=== PATIENT | female | born 1930 | race Caucasian/White ===

== ENCOUNTER 2017-09-21 19:19 | Emergency (ER) | payer MEDICARE, BC ==
[2017-09-21 19:51] VITALS: BP 164/66
--- NOTE | 2017-09-21 20:41 | EDM.PDOC ---
ED HPI GENERAL MEDICAL PROBLEM - General Chief Complaint: Abdominal Pain Stated Complaint: HEARNIA Time Seen by Provider: 09/21/17 19:21 Source of Information: Reports: Patient, Family (Son, Noah) History Limitations: Reports: No Limitations - History of Present Illness INITIAL COMMENTS - FREE TEXT/NARRATIVE: Abdominal pain this is a 87-year-old female presents emergency room with her son Noah, reports has a known hernia on the right lower abdomen, today while playing bridge she noticed increasing pain and tenderness to her right lower quadrant. This did not go away and she became concerned with a possible strangulation of the hernia. She is here now to rule this out. Denies any nausea, vomiting, diarrhea. Last meal of cheesecake and coffee was at 12:30pm. Onset: Gradual Onset Date: 09/21/17 Onset Time: 12:30 Duration: Hour(s): Location: Reports: Abdomen (Right lower quadrant) Quality: Reports: Ache, Pressure Severity: Mild Improves with: Reports: None Worsens with: Reports: None Associated Symptoms: Reports: No Other Symptoms right abdominal pain Pain Score (Numeric/FACES): 2 - Related Data Allergies Allergy/AdvReac Type Severity Reaction Status Date / Time levofloxacin [From Levaquin] Allergy Cannot Verified 09/21/17 20:49 Remember nitrofurantoin Allergy Cannot Verified 09/21/17 20:49 [From Macrobid] Remember nitrofurantoin Allergy Cannot Verified 09/21/17 20:49 macrocrystalline Remember [From Macrobid] Home Meds: Home Meds Calcium Polycarbophil [Fibercon] 625 mg PO ASDIRECTED 03/27/13 [History] Calcium* 1 tab PO DAILY 03/27/13 [History] Cranberry* 1 tab PO BID 03/27/13 [History] Omeprazole 20 mg PO DAILY 03/27/13 [History] Desonide [Desonide 0.05%] 1 applic TOP ASDIRECTED PRN 01/05/14 [History] Phenazopyridine [Pyridium] 200 mg PO TID PRN 01/05/14 [History] Ranitidine HCl [Ranitidine] 150 mg PO DAILY PRN 01/05/14 [History] Vit A & D3 In Cod Liver Oil [Cod Liver Oil Softgel] 1 tab PO DAILY 08/05/15 [ History] Fluticasone/Vilanterol [Breo Ellipta 100-25 MCG Inhalation Kit] 1 each IH DAILY 11/11/15 [History] Cephalexin [Take Home: Cephalexin 250 MG, 4 Cap Pack] 250 mg PO DAILY 04/25/16 [ History] Past Medical History HEENT History: Reports: Cataract, Hard of Hearing, Impaired Vision Respiratory History: Reports: Asthma, COPD Gastrointestinal History: Reports: Cholelithiasis, Diverticulosis, GERD, Other ( See Below) Other Gastrointestinal History: chrons Genitourinary History: Reports: UTI, Recurrent [employer] History: Reports: Musculoskeletal History: Reports: Fracture Other Musculoskeletal History: left hip. right elbow. compresion fracture. spinal stenosis Neurological History: Reports: Concussion, Neuropathy, Peripheral Dermatologic History: Reports: Other (See Below) Other Dermatologic History: Sun spots - Infectious Disease History Infectious Disease History: Reports: Chicken Pox, Measles, Mumps - Past Surgical History HEENT Surgical History: Reports: Cataract Surgery GI Surgical History: Reports: Cholecystectomy, Colonoscopy Social & Family History - Tobacco Use Smoking Status *Q: Former Smoker Used Tobacco, but Quit: Yes Month/Year Tobacco Last Used: 1981 Second Hand Smoke Exposure: No - Caffeine Use Caffeine Use: Reports: Coffee, Tea - Alcohol Use Days Per Week of Alcohol Use: 0 - Recreational Drug Use Recreational Drug Use: No ED ROS GENERAL - Review of Systems Review Of Systems: See Below Constitutional: Reports: No Symptoms HEENT: Reports: No Symptoms Respiratory: Reports: No Symptoms Cardiovascular: Reports: No Symptoms, Edema (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 Fracture 07/15/17) Skin: Reports: No Symptoms Neurological: Reports: Difficulty Walking (pre-existing deficit to neuropathy) Psychiatric: Reports: No Symptoms Hematologic/Lymphatic: Reports: No Symptoms Immunologic: Reports: No Symptoms ED EXAM, GENERAL - Physical Exam Exam: See Below Exam Limited By: No Limitations General Appearance: Alert, WD/WN, Mild Distress Eye Exam: Bilateral Eye: EOMI Ears: Normal External Exam Nose: Normal Inspection Throat/Mouth: Normal Inspection, Normal Lips Head: Atraumatic, Normocephalic Neck: Normal Inspection, Supple, Non-Tender, Full Range of Motion Respiratory/Chest: No Respiratory Distress, Lungs Clear, Normal Breath Sounds, No Accessory Muscle Use Cardiovascular: No JVD, Irregularly Irregular, Other (Irregular heartbeat with heart murmur noted.) Peripheral Pulses: 2+: Radial (R) GI/Abdominal: Normal Bowel Sounds, Soft, Distended (Fairly large abdominal mass/ bulge noted to the right lower quadrant, palpable mild tenderness noted) (Female) Exam: Deferred Rectal (Female) Exam: Deferred Back Exam: Muscle Spasm (Chronic) Extremities: Other (left arm a short cast. Fingers normal capillary refill less than 3 seconds no edema or redness is noted.) Neurological: Alert, Oriented, Normal Cognition, Normal Gait Psychiatric: Normal Affect, Normal Mood Skin Exam: Warm, Dry, Intact, Normal Color, No Rash Lymphatic: No Adenopathy Course - Vital Signs Last Recorded V/S: Last Vital Signs Temp 36.1 C 09/21/17 20:19 Pulse 66 09/21/17 20:19 Resp 17 09/21/17 20:19 BP 164/66 H 09/21/17 20:19 Pulse Ox 98 09/21/17 20:19 - Orders/Labs/Meds Orders: Active Orders 24 hr Category Date Time Status Abdomen Pelvis wo Cont [CT] Stat Exams 09/21/17 20:32 Taken Meds: Medications Discontinued Medications Generic Name Dose Route Start Last Admin Trade Name Michaelle PRN Reason Stop Dose Admin Magnesium Citrate 296 ml 09/21/17 22:17 Citrate Of Magnesia PO 09/21/17 22:18 ONETIME ONE - Re-Assessments/Exams Free Text/Narrative Re-Assessment/Exam: 09/21/17 20:45 discussed with patient and her son, will send for CT scan of abdomen pelvis without contrast to rule out any complications of her right-sided abdominal hernia. Mrs. Crowell and son agree with plan of care. 09/21/17 22:[address] of abdomen-pelvis. reviewed and given report to Mrs. Crowell and her Son has constipation, will send home with Mag.Sobia advised to follow up with Primary Care. Departure - Departure Time of Disposition: 22:26 Disposition: Home, Self-Care 01 Condition: Good Clinical Impression: Constipation Qualifiers: Constipation type: unspecified constipation type Qualified Code(s): K59.00 - Constipation, unspecified - Discharge Information Instructions: Constipation, Adult Referrals: Nico Young NP [Primary Care Provider] - Forms: ED Department Discharge Care Plan Goals: Constipation -non acute CT scan of abdomen-pelvis, patient given copy -start Magnesium Citrate tonight, drink half of the bottle now, repeat in 4 hours if no results. -avoid constipating foods such as dairy and cheese -continue routine medications as prescribed by her Medical Provider follow up with Primary Care Provider for recheck next week return to ER if not improved or symptoms worsen. - Problem List & Annotations (1) Constipation SNOMED Code(s): 78210808 Code(s): K59.00 - CONSTIPATION, UNSPECIFIED Status: Acute Priority: High Current Visit: Yes Qualifiers: Constipation type: unspecified constipation type Qualified Code(s): K59.00 - Constipation, unspecified - Problem List Review Problem List Initiated/Reviewed/Updated: Yes - My Orders Last 24 Hours: My Active Orders 09/21/17 20:32 Abdomen Pelvis wo Cont [CT] Stat - Assessment/Plan Last 24 Hours: My Active Orders 09/21/17 20:32 Abdomen Pelvis wo Cont [CT] Stat Plan: Constipation -non acute CT scan of abdomen-pelvis, patient given copy -start Magnesium Citrate tonight, drink half of the bottle now, repeat in 4 hours if no results. -avoid constipating foods such as dairy and cheese -continue routine medications as prescribed by her Medical Provider follow up with Primary Care Provider for recheck next week return to ER if not improved or symptoms worsen.
[2017-09-21] MEDS ORDERED: Magnesium Citrate Solution 296 ML Bottle PO ONE (22:17)
== END 2017-09-21 22:39 | disposition home or self-care (01) ==
LOC: JP.ED 19:19
DX: K59.00 Constipation, unspecified (principal); J44.9 Chronic obstructive pulmonary disease, unspecified; K21.9 Gastro-esophageal reflux disease without esophagitis; Z87.891 Personal history of nicotine dependence; Z79.899 Other long term (current) drug therapy
CPT/HCPCS: 74176; 99284; A9270